=== PATIENT | male | born 1995 | race African-American/Black ===

== ENCOUNTER 2024-07-31 21:22 | Emergency (ER) | payer MEDICAID ==
[~2024-07-31] VITALS: Ht 182.9 cm; Wt 82.0 kg
[2024-07-31 21:25] VITALS: BP 125/70; PULSE 107; TEMP 98.5; O2SAT 98
== END 2024-08-01 01:02 | disposition home or self-care (01) ==
LOC: ER 21:22
DX: R00.2 Palpitations (principal)
CPT/HCPCS: 93005; 99283